=== PATIENT | male | born 1955 | race Caucasian/White ===

== ENCOUNTER 2017-03-25 12:20 | Outpatient (CLI) | payer BC | END 2017-03-25 12:21 | disposition home or self-care (01) | LOC: ULT 12:20 | PROVIDERS: ATTEND Internal Medicine Cardiovascular Disease | DX: R55 Syncope and collapse (principal) | CPT/HCPCS: 93306 ==

== ENCOUNTER 2023-07-22 12:44 | Observation (INO) | payer BC, MEDICARE, SELFPAY ==
[2023-07-22] MEDS ORDERED: Ondansetron PF 4 MG/2 ML Vial ONE (13:23)
[2023-07-22 13:47] LABS: #Basophils 0.03 10x3/uL (0.0-0.2); #Eosinphils Less than 0.03 10x3/uL (0.0-0.7); %Basophils 0.4 % (0.0-1.0); %Lymphocytes 7.1 % (21.0-51.0); %Monocytes 12.9 % (0.0-10.0); %Neutrophils 79.1 % (42.0-75.0); Hematocrit 44.5 % (42.0-52.0); Hemoglobin 14.7 g/dL (14.0-18.0); Mean Corpuscular Hemoglobin 34.3 pg (27.0-31.0); Mean Platelet Volume 11.3 fL (7.4-10.4); Platelet Count 105 10x3/uL (130-400); RBC Distribution Width 13.8 % (11.5-14.5); Red Blood Cell (RBC) Count 4.28 mill/uL (4.70-6.10)
[2023-07-22 13:57] LABS: ALT (SGPT) 33 U/L (8-55); AST (SGOT) 44 U/L (5-34); Alkaline Phosphatase 31 U/L (40-110); Anion Gap 29 mmol/L (10-20); BUN (Urea Nitrogen) 27 mg/dL (8.4-25.7); Bilirubin, Total 1.2 mg/dL (0.2-1.2); Calc. Creatinine Clearance 0 mL/min (70-130); Calcium 8.8 mg/dL (7.8-10.44); Carbon Dioxide 13 mmol/L (23-31); Chloride 99 mmol/L (98-107); Estimated GFR 45; Glucose 148 mg/dL (80-115); Lipase 163 U/L (8-78); Magnesium 1.6 mg/dL (1.6-2.6); Potassium 4.7 mmol/L (3.5-5.1); Sodium 136 mmol/L (136-145); Troponin I 0.023 ng/mL (< 0.028)
[2023-07-22 14:19] LABS: Macrocytosis SLIGHT = 6-15 cells HPF (0-5); Platelet Adequacy Comment Platelets Decreased
[2023-07-22] MEDS ORDERED: Ondansetron PF 4 MG/2 ML Vial IVP PRN (14:30)
[2023-07-22] MEDS ORDERED: Calcium Carbonate 500 MG ChewTAB PO PRN (14:30)
[2023-07-22] MEDS ORDERED: Lorazepam 2 MG/ML VIAL IM PRN (14:33)
[2023-07-22] MEDS ORDERED: Lorazepam 1 MG TAB PO PRN (14:33)
[2023-07-22 14:59] LABS: Magnesium 1.7 mg/dL (1.6-2.6)
[2023-07-22] MEDS ORDERED: Morphine 2 MG/ML VIAL SLOW IVP PRN (15:00)
[2023-07-22] MEDS: Sodium Chloride 0.9% 1,000 ML IV SCH (16:20)
[2023-07-22] MEDS: Pantoprazole 40 MG VIAL IVP SCH (16:26)
[2023-07-22] MEDS: Multivit, Therapeutic 1 TAB PO SCH (16:26)
[2023-07-22] MEDS: Thiamine HCl 200 MG/2 ML VIAL SLOW IVP SCH (16:26)
[2023-07-22] MEDS: Folic Acid 1 MG TAB PO SCH (16:26)
[2023-07-22 16:35] VITALS: BMI 21.9
[2023-07-22] MEDS: Magnesium 2 GM/50 ML(in water) 2 GM in Premix 1 BAG IVPB SCH (20:14)
[2023-07-22] MEDS: Acetaminophen 325 MG TAB PO PRN (20:16)
[2023-07-22 21:02] LABS: Anion Gap 21 mmol/L (10-20); BUN (Urea Nitrogen) 26 mg/dL (8.4-25.7); Calc. Creatinine Clearance 64 mL/min (70-130); Carbon Dioxide 16 mmol/L (23-31); Chloride 104 mmol/L (98-107); Estimated GFR 65; Glucose 93 mg/dL (80-115); Sodium 137 mmol/L (136-145)
[2023-07-23 05:48] LABS: #Basophils 0.05 10x3/uL (0.0-0.2); %Eosinophils 2.2 % (0.0-10.0); %Monocytes 12.8 % (0.0-10.0); %Neutrophils 66.4 % (42.0-75.0); Hematocrit 34.8 % (42.0-52.0); Hemoglobin 11.9 g/dL (14.0-18.0); Mean Corpuscular HGB CONC 34.2 g/dL (32.0-36.0); Mean Corpuscular Hemoglobin 34.1 pg (27.0-31.0); Mean Corpuscular Volume 99.7 fL (78.0-98.0); Mean Platelet Volume 10.9 fL (7.4-10.4); Platelet Count 75 10x3/uL (130-400); RBC Distribution Width 13.5 % (11.5-14.5); Red Blood Cell (RBC) Count 3.49 mill/uL (4.70-6.10)
[2023-07-23 06:01] LABS: ALT (SGPT) 23 U/L (8-55); AST (SGOT) 35 U/L (5-34); Alkaline Phosphatase 24 U/L (40-110); Anion Gap 17 mmol/L (10-20); BUN (Urea Nitrogen) 22 mg/dL (8.4-25.7); Bilirubin, Total 1.3 mg/dL (0.2-1.2); Calc. Creatinine Clearance 76 mL/min (70-130); Calcium 7.6 mg/dL (7.8-10.44); Carbon Dioxide 18 mmol/L (23-31); Chloride 107 mmol/L (98-107); Estimated GFR 81; Globulin 2.2 g/dL (2.4-3.5); Glucose 103 mg/dL (80-115); Lipase 153 U/L (8-78); Magnesium 2.1 mg/dL (1.6-2.6); Phosphorus 1.4 mg/dL (2.3-4.7); Potassium 3.6 mmol/L (3.5-5.1); Protein, Total 5.2 g/dL (5.8-8.1); Sodium 138 mmol/L (136-145)
[2023-07-23] MEDS ORDERED: Electrolyte Replacement Protocol FS PRN (06:30)
[2023-07-23] MEDS: Potassium Phosphate 22 MMOL in Sodium Chloride 0.9% 250 ML 250 ML IVPB SCH (07:31)
[2023-07-23] MEDS: Multivit, Therapeutic 1 TAB PO SCH (07:32)
[2023-07-23] MEDS: Pantoprazole 40 MG VIAL IVP SCH (07:32)
[2023-07-23] MEDS: Enoxaparin 40 MG (0.4 mL) SYRINGE SC SCH (07:32)
[2023-07-23] MEDS: Folic Acid 1 MG TAB PO SCH (07:32)
[2023-07-23 11:38] VITALS: BP 152/89; TEMP 97.4
[2023-07-23] MEDS ORDERED: Lorazepam 1 MG TAB PO PRN (14:34)
[2023-07-24] MEDS ORDERED: Lorazepam 1 MG TAB PO PRN (14:34)
[2023-07-25] MEDS ORDERED: Lorazepam 0.5 MG TAB PO PRN (14:34)
[2023-07-25] MEDS ORDERED: Thiamine 100 MG TAB PO SCH (16:00)
== END 2023-07-23 13:53 | disposition home or self-care (01) ==
LOC: ERS 12:44 → SUATTDRO 12:44 → T4-A 15:33
PROVIDERS: ADMIT Internal Medicine; ATTEND Family Medicine
DX: R11.2 Nausea with vomiting, unspecified (principal); R19.7 Diarrhea, unspecified; I10 Essential (primary) hypertension; N17.9 Acute kidney failure, unspecified; E87.20 Acidosis, unspecified; J96.92 Respiratory failure, unspecified with hypercapnia; R53.1 Weakness; R25.1 Tremor, unspecified; E78.5 Hyperlipidemia, unspecified; F10.10 Alcohol abuse, uncomplicated; Z79.899 Other long term (current) drug therapy
CPT/HCPCS: 70450; 71045; 72125; 80048; 80053 ×2; 83690 ×2; 83735 ×2; 84100; 84484; 85025 ×2; 93005; 94760; 96361; 96372; 96374; 96375 ×2; 96376; 99285; G0378 ×2; 36415; C9113; J1650; J2405; J3411; J3475; J7050